=== PATIENT | female | born 1965 | race Caucasian/White ===

== ENCOUNTER 2016-08-23 07:01 | Emergency (ER) | payer BC ==
[~2016-08-23] VITALS: Ht 165.1 cm; Wt 56.7 kg
[2016-08-23] MEDS ORDERED: LEVO500T32 PO (07:15)
[2016-08-23] MEDS ORDERED: CYCL10TA PO (07:15)
[2016-08-23] MEDS ORDERED: METHOCARBAMOL 500 MG TAB PO ONE (07:45)
[2016-08-23] MEDS ORDERED: ACETAMINOPHEN 325 MG TAB PO ONE (07:45)
[2016-08-23] MEDS ORDERED: ZOFR4TAB3 PO (07:48)
[2016-08-23] MEDS ORDERED: ROBA500T PO (07:49)
[2016-08-23] MEDS ORDERED: ONDANSETRON 4 MG ORAL DISINTEGRATING TAB (S0181) PO ONE (08:00)
[2016-08-23 08:03] VITALS: BP 105/66
== END 2016-08-23 08:15 | disposition home or self-care (01) ==
LOC: M ED 07:55
DX: J10.1 Influenza due to other identified influenza virus with other respiratory manifestations (principal); S39.012A Strain of muscle, fascia and tendon of lower back, initial encounter; X58.XXXA Exposure to other specified factors, initial encounter; Y92.89 Other specified places as the place of occurrence of the external cause; Y93.89 Activity, other specified; Y99.8 Other external cause status; Z79.899 Other long term (current) drug therapy; Z88.0 Allergy status to penicillin; Z88.1 Allergy status to other antibiotic agents; Z88.8 Allergy status to other drugs, medicaments and biological substances; Z91.030 Bee allergy status; Z87.891 Personal history of nicotine dependence